=== PATIENT | male | born 1980 | race Caucasian/White ===

== ENCOUNTER 2016-09-16 10:54 | Emergency (ER) | payer BC ==
--- NOTE | 2016-09-24 17:46 | ER ---
ADMIT: 09/16/2016 RM/LOC: ER [facility] MR#: [id number] [id number] DAVID MERRILL [address] [place] [address] Emergency Room Report SEX: M AGE: 35 : 1980 DATE: 09/16/2016 ADDENDUM: This patient comes into the ER because he is having severe back pain. 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 States while moving a box, he sprained his back. He states he is having severe muscle spasms. On physical exam, he does have difficulty getting in and out of sitting position. Most of his pain seems to be on the left side of the back going down to the left leg. He was given Toradol 60 mg IM. I did write a prescription for an 8 [place] and 10 Valium. He is to follow up with his primary as needed. Please see my T-sheet. SAMUEL Shannon / Nael Manzo MD / modl JOB #: [id number] CC: Nael Manzo MD, Attending Physician Bryan Barrett MD, Family Physician
== END 2016-09-16 12:00 | disposition home or self-care (01) ==
LOC: ER 10:54
DX: S33.5XXA Sprain of ligaments of lumbar spine, initial encounter (principal); X50.9XXA Other and unspecified overexertion or strenuous movements or postures, initial encounter